=== PATIENT | male | born 1975 | race Caucasian/White ===

== ENCOUNTER 2020-04-28 08:22 | Emergency (ER) | payer MEDICAID, SELFPAY ==
[~2020-04-28] VITALS: Ht 180.3 cm; Wt 95.3 kg
[2020-04-28 08:25] VITALS: Ht 180.3 cm; Wt 95.3 kg
[2020-04-28 09:42] VITALS: BP 131/000
== END 2020-04-28 08:25 | disposition home or self-care (01) ==
LOC: ED 08:22
DX: R11.2 Nausea with vomiting, unspecified (principal); R50.9 Fever, unspecified; Z20.828 Contact with and (suspected) exposure to other viral communicable diseases
CPT/HCPCS: Q0162; U0003-CS